=== PATIENT | female | born 1965 | race African-American/Black ===

== ENCOUNTER 2017-10-20 22:50 | Emergency (ER) | payer OTHER ==
[~2017-10-20] VITALS: Ht 175.3 cm; Wt 113.4 kg
--- NOTE | ~2017-10-20 | EKG ---
[place] [address] [facility] [place] [place] [address] ELECTROCARDIOGRAM REPORT Name: ELEN PATRICIA Room #: [facility]P [facility]ITAL[facility] [id number] Admission: 10/20/17 Attend Phys: Discharge: 10/21/17 Date of : 65 Report #: [id number] THIS REPORT FOR: //name// [facility] ED Test Date: 2017-10-20 Test Time: 22:54:49 Pat Name: ELEN PATRICIA Department: Room: Gender: F [employer]: LAUREL : 1965 Requested By: Devendra Rouse Order Number: [id number] MD: Low Shah Measurements Intervals [place] Rate: 71 P: 68 NE: 167 QRS: -6 QRSD: 92 T: 37 QT: 336 QTc: 366 Interpretive Statements Sinus arrhythmia Low voltage, precordial leads ST elev, probable normal early repol pattern No previous ECG available for comparison Electronically Signed On 10-21-2017 8:55:19 BENEFITS CONSULTING ANALYST by Low Shah [email or web address] <ELECTRONICALLY SIGNED> By: Low Shah MD 10/21/17 [id number] Low Shah MD /SIVAN
[2017-10-20 23:08] LABS: ABSOLUTE NEUTROPHILS 2.5 thou/uL (1.4-8.2); BASOPHILS 1.2 % (0.0-2.0); EOSINOPHILS 1.3 % (0.0-3.0); HEMATOCRIT 37.6 % (37.0-47.0); HEMOGLOBIN 12.4 gm/dL (12.0-15.0); LYMPHOCYTES 49.4 % (24.0-44.0); MCH 29.2 pg (26.0-34.0); MCHC 33.1 g/dL (28.0-37.0); MCV 88.2 fL (80.0-100.0); MONOCYTES 6.3 % (1.0-8.0); PLATELET COUNT 243 thou/uL (150-400); POLYS 41.8 % (36.0-66.0); RBC 4.26 mil/uL (4.20-5.00); RDW 14.9 % (10.5-14.5); WBC 6.1 thou/uL (4.0-11.0)
[2017-10-20 23:23] LABS: ANION GAP 8 mmol/L (7-16); BUN 13 mg/dL (7-18); CALCIUM 9.7 mg/dL (8.5-10.1); CHLORIDE 104 mmol/L (98-107); CO2 28 mmol/L (21-32); CREATININE 1.1 mg/dL (0.6-1.0); GLUCOSE 102 mg/dL (74-106); SODIUM 140 mmol/L (136-145)
[2017-10-20 23:27] LABS: ALBUMIN 3.6 g/dL (3.4-5.0); SGOT 16 U/L (15-37); SGPT 23 U/L (30-65); TOTAL BILIRUBIN 0.1 mg/dL (<0.1-1.0); TOTAL PROTEIN 7.8 g/dL (6.4-8.2); TROPONIN-I < 0.04 ng/mL (<0.06)
[2017-10-21] MEDS ORDERED: BUTALB-APAP-CA1 EACH PO (00:22)
== END 2017-10-21 02:30 | disposition home or self-care (01) ==
LOC: ER 22:50
PROVIDERS: Emergency Medicine
DX: R55 Syncope and collapse (principal); G44.209 Tension-type headache, unspecified, not intractable; F32.9 Major depressive disorder, single episode, unspecified